=== PATIENT | female | born 1950 | race Two or more races ===

== ENCOUNTER 2025-03-22 09:10 | Day surgery (SDC) | payer OTHER ==
[2025-03-21 08:44] LABS: BASO % 0.2 % (0.1-1.2); EOS # 0.08 (0.04-0.54); EOS % 0.8 % (0.7-7.0); LYMPH # 3.49 (1.18-3.74); LYMPH % 33.9 % (19.3-53.1); MEAN PLATELET VOLUME 11.70 fl (9.4-12.4); MONO # 1.08 (0.24-0.82); MONO % 10.5 % (4.7-12.5); NEUT # 5.58 (1.56-6.13); NEUT % 54.2 % (34.0-71.1); RED CELL DISTRIBUTION WIDTH 12.0 % (11.6-14.4)
[2025-03-21 08:47] LABS: URINE APPEARANCE Clear; URINE BILIRRUBIN Negative (NEGATIVE); URINE BLOOD Negative; URINE COLOR Yellow; URINE KETONE Negative (NEGATIVE); URINE LEUKOCYTE Negative; URINE NITRATE Negative; URINE PROTEIN Negative (NEGATIVE); URINE UROBILINOGEN 0.2 E.U./dl
[2025-03-21 08:48] LABS: URINE BACTERIA 502.5 uL (0.0-1933); URINE EPITHELIAL CELLS 65.2 uL (0.0-38.8); URINE WBC 7.3 uL (0.0-23.2)
[2025-03-21 08:50] LABS: URINE CAST 0.58 uL (0.0-1.40); URINE GLUCOSE >=1000 MG/DL (NEGATIVE); URINE RBC 0.2 uL (0.0-20.8)
[2025-03-21 09:04] LABS: COVID-19 AG NEGATIVE (NEGATIVE)
[2025-03-21 09:09] LABS: INR 1.01
[2025-03-21 09:18] LABS: ALT/SGPT 23.0 U/L (12-78); AST/SGOT 14.0 U/L (15-37); BILIRUBIN TOTAL 0.62 mg/dL (0.3-1.2); BUN CREA RATIO 30.0 (7.0-25.0); CREATININE SERUM 0.97 mg/dL (0.55-1.02); GFR 56.45; GLOBULINA 4.0 G/DL (2.4-3.5); GLUCOSE FASTING 127.0 mg/dL (65-100); OSMOLALITY SERUM 289.0 MOSM/KG (275-295)
[2025-03-21 10:09] VITALS: BP 144/87
[~2025-03-22] VITALS: Ht 157.5 cm; Wt 67.6 kg
[~2025-03-22 09:10] MED LIST: ATACAND HCT 321 EACH PO; CRESTOR40 MG PO; GLIMEPIRIDE2 MG; HORIZANT300 MG PO; HYDRALAZINE HCL50 MG PO; LEVOTHYROXINE25 MCG PO; NIFEDIPINE ER60 M1 PO; SYNJARDY XR 251 EACH PO; TOPROL XL100 M1 PO
[2025-03-22] MEDS ORDERED: CEFAZOLIN SODIUM 1,000 MG VIAL ONE (09:58)
[2025-03-22] MEDS ORDERED: CHLORHEXIDINE GLUCONATE 120 ML BOTTLE TOP ONE (12:11)
== END 2025-03-22 17:25 | disposition home or self-care (01) ==
LOC: CIR.AMB 09:10
PROVIDERS: ATTEND Surgery
DX: C50.411 Malignant neoplasm of upper-outer quadrant of right female breast (principal); R59.0 Localized enlarged lymph nodes; Z91.041 Radiographic dye allergy status